=== PATIENT | male | born 1995 | race Two or more races ===

== ENCOUNTER 2024-08-02 09:42 | Emergency (ER) | payer SELFPAY ==
[~2024-08-02] VITALS: Ht 170.2 cm; Wt 94.2 kg
[2024-08-02 10:26] VITALS: BP 139/86; PULSE 102; RESP 16; TEMP 97.9; O2SAT 96
[2024-08-02 10:28] LABS: Urine Bacteria None Seen /hpf (None Seen)
[2024-08-02 10:55] LABS: Urine Blood Negative /uL (Negative); Urine Clarity Clear (Clear); Urine Color Light-Yellow (Yellow); Urine Protein, UAD Negative (Negative); Urine Specific Gravity 1.018 (1.001-1.035); Urine Urobilinogen Normal (Negative); Urine WBC <1 /hpf (0 - 3); Urine pH 5.5 (5.0-9.0)
[2024-08-02] MEDS: DOXYCYCLINE 100 MG TAB/CAP PO ONE (11:13)
[2024-08-02] MEDS: cefTRIAXone W LIDOCAINE 500 MG IM IM ONE (11:13)
[2024-08-02] MEDS ORDERED: DOXY-286 PO (14:31)
[2024-08-03 19:06] LABS: Chlamydia Trachomatis, NAA Negative (Negative); Neisseria gonorrhoeae, NAA Negative (Negative)
== END 2024-08-02 14:47 | disposition home or self-care (01) ==
LOC: ER 09:42
DX: R36.9 Urethral discharge, unspecified (principal); Z88.2 Allergy status to sulfonamides
CPT/HCPCS: 76870; 81001; 87491; 87591; 96372; 99285; J0696

== ENCOUNTER 2024-08-12 09:53 | Emergency (ER) | payer SELFPAY ==
[~2024-08-12] VITALS: Ht 172.7 cm; Wt 93.5 kg
[~2024-08-12 09:53] MED LIST: DOXY-286 PO
[2024-08-12 10:25] VITALS: BP 146/93; PULSE 72; RESP 16; TEMP 98.8; O2SAT 97
[2024-08-12] MEDS ORDERED: CIPR-173 PO (11:30)
[2024-08-12] MEDS ORDERED: KETO2CRE4 TOP (11:30)
== END 2024-08-12 11:37 | disposition home or self-care (01) ==
LOC: ER 09:53
DX: B37.42 Candidal balanitis (principal); N34.2 Other urethritis; Z88.2 Allergy status to sulfonamides; Z88.1 Allergy status to other antibiotic agents; Z79.899 Other long term (current) drug therapy

== ENCOUNTER 2024-09-13 07:57 | Emergency (ER) | payer MEDICAID ==
[~2024-09-13] VITALS: Ht 167.6 cm; Wt 93.9 kg
[~2024-09-13 07:57] MED LIST changes: +CIPR-173 PO; +KETO2CRE4 TOP
--- NOTE | 2024-09-13 08:18 | ED.PDOC ---
General HPI Comments 20-year-old male patient presents to the emergency room for penile pain with discharge. Patient reports that he has a small amount of white discharge when squeezing the penis and that the discharge is in the meatus. Patient denies having any sexual intercourse since July. Patient denies any medical history. Patient reports that the discharge is only present when squeezing the penis. Patient denies any burning or itching. Denies lower back pain. Patient denies urinary complaints. Patient denies discharge from penis unless he is squeezing the tip of penis. Patient is uncircumcised. Chief Complaint: Penile Discharge Time Seen by MD: 07:59 Primary Care Provider: none Reviewed notes: Nurses Notes, Medications Allergies: Coded Allergies: Sulfa Antibiotics (Verified Allergy, Unknown, 08/02/24) Sulfamethoxazole w/Trimethoprim (Verified Allergy, Unknown, 08/12/24) Home Meds Active Scripts Ketoconazole (Ketoconazole) 2 % Cre, 1 APPLIC TOP BID, #30 GRAMS Prov:ABHINAV LEDBETTER 08/12/24 Ciprofloxacin Hcl (Cipro) 500 Mg Tab, 1 TAB PO BID, #14 TAB Prov:ABHINAV LEDBETTER 08/12/24 Doxycycline Hyclate (DOXYCYCLINE HYCLATE) 100 Mg Tab, 1 TAB PO BID for 7 Days, #14 TAB Prov:SARA FLORES MD 08/02/24 Information Source: Patient Mode of Arrival: Ambulatory Past Medical History PAST MEDICAL HISTORY: Denies Surgical History: Denies all surgeries Family History Family History: Reviewed,noncontributory to illness, No family hx of Cancer, No family hx of DM, No family hx of Heart roberta, No family hx of HTN, No family hx ofKidney roberta, No family hx of Liver roberta, No family hx of Lung roberta, No family hx of Stroke Social History Smoker: Non-Smoker Alcohol: Denies ETOH Use Drugs: Denies Drug Use Lives In: Home Constitutional: denies: chills, diaphoresis, fatigue, fever, malaise, sweats, weakness, others EENTM: denies: blurred vision, double vision, ear bleeding, ear discharge, ear drainage, ear pain, ear ringing, eye pain, eye redness, hearing loss, mouth pain, mouth swelling, nasal discharge, nose bleeding, nose congestion, nose pain, photophobia, tearing, throat pain, throat swelling, voice changes, others Respiratory: denies: cough, hemoptysis, orthopnea, SOB at rest, shortness of breath, SOB with excertion, stridor, wheezing, others Gastrointestinal: denies: abdomen distended, abdominal pain, blood streaked bowels, constipated, diarrhea, dysphagia, difficulty swallowing, hematemesis, melena, nausea, poor appetite, poor fluid intake, rectal bleeding, rectal pain, vomiting, others Genitourinary: reports: penile discharge Neurological: denies: dizziness, fainting, headache, left sided numbness, left sided weakness, numbness, paresthesia, pre-existing deficit, right sided numbn ess, right sided weakness, seizure, speech problems, tingling, tremors, weakness, others Musculoskeletal: denies: back pain, gout, joint pain, joint swelling, muscle pain, muscle stiffness, neck pain, others Integumetry: denies: bruises, change in color, change in hair/nails, dryness, laceration, lesions, lumps, rash, wounds, others Allergic/Immunocompromised: denies: Difficulty Healing, Frequent Infections, Hives, Itching, others Hematologic/Lymphatic: denies: anemia, blood clots, easy bleeding, easy bruising, swollen glands, others Endocrine: denies: excessive hunger, excessive sweating, excessive thirst, excessive urination, flushing, intolerance to cold, intolerance to heat, unexplained weight gain, unexplained weight loss, others Psychiatric: denies: anxiety, bipolar disorder, depression, hopeless, panic disorder, schizophrenia, sleepless, suicidal, others All Other Systems: Reviewed and Negative Physical Exam Exam Comments No discharge noted to penis. No erythema, no inflammation General Appearance: No Apparent Distress, Normal HEENT: Normal ENT Inspection, Pharynx Normal, TMs Normal Neck: Full Range of Motion, Non-Tender, Normal, Normal Inspection Respiratory: Chest Non-Tender, Lungs Clear, No Accessory Muscle Use, No Res piratory Distress, Normal Breath Sounds Cardiovascular: No Edema, No JVD, No Murmur, No Gallop, Normal Peripheral Pulses, Regular Rate/Rhythm Breast Exam: Deferred Gastrointestinal: No Organomegaly, Non Tender, No Pulsatile Mass, Normal Bowel Sounds, Soft Genitalia: Foreskin, Other (Uncircumcised) Pelvic: Deferred Rectal: Deferred Extremities: No calf tenderness, Normal capillary refill, Normal inspection, Normal range of motion, Non-tender, No pedal edema Musculoskeletal : Apperance: Normal Neurologic: Alert, 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 Was a procedure done?: No Differential Diagnosis Kidney stone (Female): N/A Kidney stone (Male): N/A Penile/Scrotal: STD, UTI Urinary Problem (Male): UTI, Other (STD) Urinary Problem (Female): N/A X-Ray, Labs, Meds, VS Vital Signs Date Time Temp Pulse Resp B/P (MAP) Pulse Ox O2 Delivery O2 Flow Rate FiO2 09/13/24 10:11 97.8 84 16 135/72 (93) 98 97.8 09/13/24 10:00 75 16 96 Room Air* 0 21 09/13/24 08:49 98.4 86 16 136/88 (104) 98 98.4 09/13/24 08:05 98.3 110 17 148/94 (112) 97 Lab Test 09/13/24 08:20 09/13/24 08:00 Range/Units Urine Color Colorless Yellow Urine Clarity Clear Clear Urine pH 6.0 5.0-9.0 Urine Specific [place] 1.008 1.001-1.035 Urine Protein Negative Negative Urine Ketones Negative Negative Urine Blood Negative Negative /uL Urine Nitrite Negative Negative Urine Bilirubin Negative Negative Urine Urobilinogen Normal Negative mg/dL Urine Leukocyte Esterase Negative Negative /uL Urine RBC 1 0 - 3 /hpf Urine WBC None seen 0 - 3 /hpf Urine Squamous Epithelial Cells None seen <5 /hpf Urine Bacteria None seen None Seen /hpf Urine Glucose Normal Normal mg/dL Chlamydia trachomatis ([facility]) Pending Neisseria gonorrhoeae ([facility]) Pending X-Ray, Labs, Meds, VS Comment Patient advised to follow up with the primary care physician and a urologist. Patient reports that he does have insurance but has not yet found a primary care physician. On re-evaluation patient has symptomatic improvement. Patient is stable for discharge at this time. All test results and diagnostic imaging have been interpreted. All diagnostic findings, discharge care, and education instruction provided to the patient. Follow-up with PCP in 2-3 days Patient verbalized understanding, discharge instructions and agrees to treatment plan Vital signs are stable Patient is ambulatory Patient advised of which symptoms necessitate a return visit to the emergency room. Patient to return emergency room for any new worsening symptoms. Patient is aware that the purpose of this visit is for an acute medical emergency requiring emergent stabilization. Chronic conditions, including malignancies have not been ruled out. Patient is instructed to follow up with PCP as directed for continued care and workup. If unable to arrange follow up, patient is to return to the emergency room for reassessment. Patient was given verbal and written discharge instructions and acknowledges understanding Time of 1ST Reevaluation: 08:17 Reevaluation 1ST: Unchanged Patient Education/Counseling: Diagnosis, Treatment, Prognosis Family Education/Counseling: No Family Present Departure 1 Departure Time of Disposition: 10:00 Impression: Primary Impression: [facility] Disposition: 01 HOME / SELF CARE / HOMELESS Condition: Stable Discharged With: Self Critical Care Note Critical Care Time?: No Stability Stability form required: No Heart Score Heart Score: Heart Score Response (Comments) Value History N/A 0 EKG N/A 0 Age N/A 0 Risk Factors N/A 0 Troponin N/A 0 Total 0 BENITA GALEAS Sep 13, 2024 08:18
[2024-09-13 09:03] LABS: Urine Bacteria None Seen /hpf (None Seen); Urine WBC None Seen /hpf (0 - 3)
[2024-09-13 09:34] LABS: Urine Blood Negative /uL (Negative); Urine Clarity Clear (Clear); Urine Color Colorless (Yellow); Urine Protein, UAD Negative (Negative); Urine Specific Gravity 1.008 (1.001-1.035); Urine Urobilinogen Normal (Negative)
[2024-09-13 10:00] VITALS: PULSE 75; RESP 16; O2SAT 96
[2024-09-13 10:11] VITALS: BP 135/72; PULSE 84; RESP 16; TEMP 97.8; O2SAT 98
[2024-09-15 06:06] LABS: Chlamydia Trachomatis, NAA Negative (Negative); Neisseria gonorrhoeae, NAA Negative (Negative)
== END 2024-09-13 10:18 | disposition home or self-care (01) ==
LOC: ER 07:57
DX: R36.9 Urethral discharge, unspecified (principal); Z88.2 Allergy status to sulfonamides; Z79.899 Other long term (current) drug therapy
CPT/HCPCS: 81001